=== PATIENT | female | born 1945 | race Caucasian/White ===

== ENCOUNTER 2017-08-03 06:02 | Day surgery (SDC) | payer MEDICARE, OTHER ==
[2017-08-03] MEDS ORDERED: Versed 2 MG/2 ML Injection IV ONE (06:03)
[2017-08-03] MEDS ORDERED: DIPRIVAN 200 MG/20 ML IV ONE (06:03)
[2017-08-03] MEDS ORDERED: Lactated Ringers 1,000 ML IV SCH (07:00)
[2017-08-03 08:23] VITALS: BP 114/68; PULSE 77; O2SAT 95
[2017-08-03] MEDS ORDERED: Lactated Ringers 1,000 ML IV ONE (12:53)
--- NOTE | 2017-08-11 13:45 | OP ---
SURGERY DATE/TIME: 08/03/2017 0656 PREOPERATIVE DIAGNOSES: 1) History of colon polyps. 2) Constipation. POSTOPERATIVE DIAGNOSES: 1) Poor bowel prep. 2) Diverticulosis. PROCEDURE: Colonoscopy. SURGEON: Tae Mcconnell M.D. ANESTHESIA: MAC by Vik Jaquez CRNA. ESTIMATED BLOOD LOSS: None. SPECIMENS: None. DESCRIPTION OF PROCEDURE: After informed written consent was obtained, the patient was taken to the endoscopy suite. She underwent monitored anesthesia and digital rectal exam showed normal sphincter tone and no internal lesions. The scope was inserted into the rectum and sequentially the entire colonic mucosa was traversed. The level of cecum was reached and verified with direct visualization of ileocecal valve. There was semisolid stool present throughout the entire length of the colon making visualization of the colonic mucosa difficult in some areas. There were diffuse diverticula noted throughout the length of the colon. There were no obvious mucosal abnormalities or lesions present upon withdrawal. Retroflexion was performed prior to withdrawal and was within normal limits. The scope was removed and the patient was transferred to the recovery room in good condition.
== END 2017-08-03 08:45 | disposition home or self-care (01) ==
LOC: SDC 06:02
PROVIDERS: ATTEND Family Medicine
PROC: 0DJD8ZZ Inspection of Lower Intestinal Tract, Via Natural or Artificial Opening Endoscopic (ICD-10-PCS; principal; 2017-08-03)
DX: K57.90 Diverticulosis of intestine, part unspecified, without perforation or abscess without bleeding (principal); K59.00 Constipation, unspecified
CPT/HCPCS: 00810; 99100; J2250; J2704

== ENCOUNTER 2019-02-12 13:22 | Emergency (ER) | payer MEDICARE, OTHER ==
[2019-02-12] MEDS ORDERED: BABY ASPIRIN 81 MG CHEW PO ONE (14:15)
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
[2019-02-12 14:23] LABS: BASOPHIL % 0.3 % (0.0-0.4); Basophil (Absolute #) 0.03 (0-0.4); Eosinophil (Absolute #) 0.44 (0-0.5); Granulocyte Absolute (ANC) 4.72 (1.4-6.9); Granulocytes % 53.1 % (36.0-66.0); Hematocrit 43.2 % (35-47); Hemoglobin 14.5 gm/dl (12.0-16.0); Lymphocyte (Absolute #) 2.69 (1.0-4.6); Lymphocytes % 30.3 % (24.0-44.0); Mean Cell Volume 86.1 fl (78-100); Mean Corpuscular Hemoglobin 28.9 pg (26-32); Mean Corpuscular Hgb Concent. 33.6 g/dl (32-36); Mean Platelet Volume 10.4 fl (6-9.5); Monocytes % 11.3 % (0.0-12.0); Platelet Count 262 K/mm3 (150-450); Red Blood Count 5.02 M/mm3 (4.1-5.4); Red Cell Distribution Width 15.2 % (11.5-14.0); White Blood Count 8.9 K/mm3 (4.0-10.5)
[2019-02-12 14:25] LABS: INR 1.03 (0.8-3.0); PROTIME 11.6 SECONDS (9.95-12.35)
[2019-02-12] MEDS ORDERED: BABY ASPIRIN 81 MG CHEW ONE (14:31)
[2019-02-12 14:34] LABS: AMYLASE 81 U/L (30-110); LIPASE 104 U/L (23-300)
[2019-02-12 14:35] LABS: ALBUMIN 4.6 g/dL (3.5-5.0); ALKALINE PHOSPHATASE 212 U/L (38-126); ANION GAP 13.2 MEQ/L (5-15); BLOOD UREA NITROGEN 16 mg/dL (7-17); CHLORIDE 102 mmol/L (98-107); Calcium 10.2 mg/dL (8.4-10.2); Carbon Dioxide 27 mmol/L (22-30); Creatinine 1 0.73 mg/dL (0.52-1.04); Glucose 91 mg/dL (74-106); Potassium 4.2 mmol/L (3.5-5.1); SGOT/AST 51 U/L (14-36); SGPT/ALT 29 U/L (0-35); SODIUM 139 mmol/L (137-145); Total Protein 8.4 g/dL (6.3-8.2)
--- NOTE | 2019-02-12 14:37 | XRAY ---
Indication: Chest pain. Comparison: December 25, 2015. Portable chest again demonstrates normal heart and lungs with incidental calcified granulomas. Bony thorax intact. No new/acute findings.
--- NOTE | 2019-02-12 16:45 | XRAY ---
Indication: Chest pressure/tightness. Back pain. Elevated d-dimer. Short of breath. Multiple contiguous axial images obtained through the chest using 80 cc of Isovue-370 contrast and PE protocol. Comparison: January 13, 2014. There is good opacification of the pulmonary arteries to include the lobar and segmental branches. No filling defect or pulmonary embolus. Heart is not enlarged. Aorta is normal in course and caliber. Stable tiny left hilar calcified nodes. No pathologic mediastinal/hilar lymphadenopathy. Lungs inflated with stable left upper lobe calcified granuloma, tiny right lower noncalcified nodules, and tiny left lower lobe noncalcified nodule. Also stable medial left lower lobe fibrosis/scarring. No new pulmonary mass, infiltrate, or effusion. Bony thorax intact. Limited upper abdomen unremarkable. Impression: 1. Again negative pulmonary embolus. No acute cardiopulmonary abnormalities. 2. Stable calcified/noncalcified nodules favored to be old granulomatous disease. CTDI 14.31
[2019-02-12 18:23] VITALS: BP 120/82; PULSE 71; O2SAT 94
== END 2019-02-12 18:26 | disposition home or self-care (01) ==
LOC: ED 13:22
DX: R07.89 Other chest pain (principal); Z86.73 Personal history of transient ischemic attack (TIA), and cerebral infarction without residual deficits; I10 Essential (primary) hypertension; Z79.899 Other long term (current) drug therapy
CPT/HCPCS: 36000; 36415; 71045; 71260; 80053; 82150; 83690; 84484; 85025; 85379; 85610; 85730; 93005; 93041; 99284; A9270-GY

== ENCOUNTER 2020-09-11 16:26 | Emergency (ER) | payer MEDICARE, OTHER ==
[2020-09-11 18:27] VITALS: BP 139/87; PULSE 65; O2SAT 95
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
== END 2020-09-11 19:00 | disposition home or self-care (01) ==
LOC: ED 16:26
DX: S01.01XA Laceration without foreign body of scalp, initial encounter (principal); I10 Essential (primary) hypertension; W01.190A Fall on same level from slipping, tripping and stumbling with subsequent striking against furniture, initial encounter; Z79.899 Other long term (current) drug therapy
CPT/HCPCS: 12002; 99283

== ENCOUNTER 2021-05-17 09:50 | Day surgery (SDC) | payer MEDICARE, OTHER ==
[2021-05-17 09:40] LABS: COVID AG -BINAX NOW RAPID TEST NEGATIVE (NEGATIVE)
[2021-05-17] MEDS ORDERED: Lactated Ringers 1,000 ML IV SCH (10:00)
[2021-05-17] MEDS ORDERED: Lactated Ringers 1,000 ML IV ONE (10:30)
[2021-05-17 15:07] VITALS: BP 145/90; PULSE 78; O2SAT 94
--- NOTE | 2021-05-18 10:56 | OP ---
PROCEDURE DATE/TIME: 05/17/2021 1321 PREOPERATIVE DIAGNOSES: Bloating, constipation, reflux disease. POSTOPERATIVE DIAGNOSES: 1) Small hiatal hernia. 2) Gastritis. 3) Reflux disease. 4) Peptic ulcer disease. 5) Diverticulosis. 6) Angulated and tortuous sigmoid colon. PROCEDURES: 1) EGD with biopsy. 2) Colonoscopy. PROCEDURE PERFORMED BY: Kelsey Anthony M.D. ANESTHESIA: MAC. ESTIMATED BLOOD LOSS: Minimal. COMPLICATIONS: None. SPECIMENS: 1) Antral biopsy; rule out Helicobacter pylori. 2) Duodenal biopsy; rule out celiac disease. HISTORY: This is a patient who presents for EGD and colonoscopy. She has had numerous symptoms including bloating, constipation and reflux disease which she would like to be evaluated. Her H&P and consent were reviewed with her and confirmed. She was seen to review everything and then was brought back to the endoscopy suite. DESCRIPTION OF PROCEDURE: In the endoscopy suite a complete time out was performed. She was placed in the left lateral decubitus position. The scope was then inserted gently through the mouth into the oropharynx down into the esophagus, stomach and then duodenum. Her duodenum looked normal. I did take a few biopsies due to her symptoms to rule out celiac disease. These were done with cold forceps and each biopsy site was hemostatic after biopsy. We evaluated at least to the second portion of the duodenum and then the scope was carefully withdrawn after insuring good hemostasis and no issue. Back into the stomach, the patient had two ulcerations one which was a linear ulceration approximately 1 to 1.25 cm and then a smaller adjacent ulcer which was more pinpoint in the body of the stomach. She had some antral gastritis and some gastritis throughout the body with some erythema. I took biopsies in the antrum to rule out Helicobacter pylori. There was no antral ulcer. On retroflex view the patient does have a small hiatal hernia. He does have some mild upper gastritis, this is less than in her antrum and her stomach body. There were no masses. We then were able to carefully remove the scope back into the esophagus. She was hemostatic at her biopsy sites in her stomach. Her ulcer was not bleeding. It looked cratered but linear shaped ulcer. No sign of any malignancy. In the distal esophagus the patient does have some free flow reflux. He does not have any obvious Melendez's disease. He does have a small hiatal hernia about 2 cm. The remainder of the esophagus outside of this was normal and the scope was completely withdrawn. The patient tolerated the procedure well. There were no immediate complications. She was repositioned for colonoscopy. First, a rectal exam was done. The patient does have some prominent external hemorrhoidal disease as well as some benign appearing anal tags. She also does have some mild internal hemorrhoidal disease as well. All of this appears benign. There were no concerning masses identified on inspection, palpation or with the colonoscope in the rectum. The scope was then inserted and gently advanced to the level of the cecum. The patient had quite an angulated and tortuous sigmoid colon. We did have to use gentle abdominal pressure to help straighten the scope but with gentle abdominal pressure we were able to get to the cecum. The ileocecal valve and appendiceal orifice were visualized and these looked normal. The scope was then carefully withdrawn taking a circumferential view. The patient did have liquid stool. We did have to irrigate this. After irrigation the prep was satisfactory. The patient also had diverticulosis with multiple small pockets. Otherwise, the mucosa of her colon looked normal and the scope was able to be completely withdrawn. I did not see any masses or lesions. No strictures but again she was angulated and tortuous even though her lumen was patent. The patient tolerated the procedure well. There were no immediate complications. Due to her prep being satisfactory but not perfect, I would put her on a five year surveillance colonoscopy interval and at this time she will be 80 so we will reconvene and determine what is right for her at that time. With her regards to her EGD, I will plan to do another EGD in two to three months to insure this ulcer has healed. She is going to think about her gallbladder surgery and determine if she wants to proceed with this next week or attempt to heal the ulcer first and then proceed with gallbladder surgery after that. Her family understands all of the findings. I have written her a prescription for Carafate and she will continue her proton pump inhibitor and she will be following up with me in the office as well.
== END 2021-05-17 15:15 | disposition home or self-care (01) ==
LOC: SDC 09:50
PROVIDERS: ATTEND Surgery
DX: K44.9 Diaphragmatic hernia without obstruction or gangrene (principal); K59.00 Constipation, unspecified; R14.0 Abdominal distension (gaseous); I10 Essential (primary) hypertension; Z79.899 Other long term (current) drug therapy; K21.9 Gastro-esophageal reflux disease without esophagitis; K57.30 Diverticulosis of large intestine without perforation or abscess without bleeding; K27.9 Peptic ulcer, site unspecified, unspecified as acute or chronic, without hemorrhage or perforation; K29.70 Gastritis, unspecified, without bleeding; K64.4 Residual hemorrhoidal skin tags
CPT/HCPCS: 88305; 88312; 99000; 99100

== ENCOUNTER 2024-03-19 08:27 | Day surgery (SDC) | payer MEDICARE ==
[~2024-03-19 08:27] MED LIST: ACETAZOLAMIDE 250 MG TABLET PO ONE; Ak-Dilate OPHTHALMIC*** 1.065 ML, Cyclogyl 1% OPHTH SOL 1.065 ML, GATIFLOXACIN 0.5% OPH... OP ONE; BETADINE 5% OPHTHALMIC 30 ML OP ONE; Lactated Ringers 1,000 ML IV ONE; Lactated Ringers 1,000 ML IV SCH; NON-FORMULARY ITEM OP ONE; TETRACAINE 0.5% STERI-UNIT SOL OP ONE; Zofran 4 MG/2 ML VIAL IV PRN; cefUROXime sodium 0.005 GM in Sodium Chloride Flush 30 ML*** 0.5 ML IJ ONE
[2024-03-19 08:50] VITALS: RESP 16
[2024-03-19] MEDS: Lactated Ringers 1,000 ML IV SCH (08:53)
[2024-03-19] MEDS: TETRACAINE 0.5% STERI-UNIT SOL OP ONE ×2 (08:54→09:37)
[2024-03-19] MEDS: Ak-Dilate OPHTHALMIC*** 1.065 ML, Cyclogyl 1% OPHTH SOL 1.065 ML, GATIFLOXACIN 0.5% OPH... OP ONE (08:56)
[2024-03-19] MEDS ORDERED: Zofran 4 MG/2 ML VIAL IV PRN (10:30)
[2024-03-19] MEDS ORDERED: Epinephrine Preservative Free 1 MG/ML IJ ONE (10:30)
[2024-03-19] MEDS ORDERED: SUBLIMAZE 100 MCG/2 ML ONE (11:06)
[2024-03-19] MEDS ORDERED: DIPRIVAN 200 MG/20 ML IV ONE (11:06)
[2024-03-19] MEDS ORDERED: Versed 2 MG/2 ML Injection ONE (11:06)
[2024-03-19] MEDS: ACETAZOLAMIDE 250 MG TABLET PO ONE (11:40)
[2024-03-19 11:44] VITALS: BP 146/82; PULSE 67; TEMP 97.7; O2SAT 93
== END 2024-03-19 11:51 | disposition home or self-care (01) ==
LOC: SDC 08:27
PROVIDERS: ATTEND Ophthalmology
DX: H25.811 Combined forms of age-related cataract, right eye (principal)
CPT/HCPCS: C1780; J0171; J2250; J2704; J3010; A9270-GY

== ENCOUNTER 2024-04-23 08:00 | Day surgery (SDC) | payer MEDICARE ==
[~2024-04-23 08:00] MED LIST changes: -ACETAZOLAMIDE 250 MG TABLET PO ONE; -Ak-Dilate OPHTHALMIC*** 1.065 ML, Cyclogyl 1% OPHTH SOL 1.065 ML, GATIFLOXACIN 0.5% OPH... OP ONE; -Lactated Ringers 1,000 ML IV ONE; -Lactated Ringers 1,000 ML IV SCH; +MOXIFLOXACIN 4 MG/0.8 ML VIAL IO ONE; -NON-FORMULARY ITEM OP ONE; -TETRACAINE 0.5% STERI-UNIT SOL OP ONE; +TRIAMCINOLONE 15 MG/ML INJ INTRAOP ONE; -Zofran 4 MG/2 ML VIAL IV PRN; -cefUROXime sodium 0.005 GM in Sodium Chloride Flush 30 ML*** 0.5 ML IJ ONE
[2024-04-23] MEDS ORDERED: Epinephrine Preservative Free 1 MG/ML IJ ONE (08:01)
[2024-04-23] MEDS ORDERED: Lactated Ringers 1,000 ML IV ONE ×2 (08:21→08:27)
[2024-04-23] MEDS: Lactated Ringers 1,000 ML IV SCH (08:28)
[2024-04-23] MEDS: TETRACAINE 0.5% STERI-UNIT SOL OP ONE ×2 (08:31→09:17)
[2024-04-23] MEDS: Ak-Dilate OPHTHALMIC*** 1.065 ML, Cyclogyl 1% OPHTH SOL 1.065 ML, GATIFLOXACIN 0.5% OPH... OP ONE (08:32)
[2024-04-23] MEDS ORDERED: Zofran 4 MG/2 ML VIAL IV PRN (10:00)
[2024-04-23] MEDS ORDERED: ACETAZOLAMIDE 250 MG TABLET PO ONE (10:00)
[2024-04-23] MEDS ORDERED: DIPRIVAN 200 MG/20 ML IV ONE (10:16)
[2024-04-23 10:43] VITALS: RESP 16; TEMP 97
[2024-04-23 10:57] VITALS: BP 156/86; PULSE 67; O2SAT 94
== END 2024-04-23 11:06 | disposition home or self-care (01) ==
LOC: SDC 08:00
PROVIDERS: ATTEND Ophthalmology
DX: H25.812 Combined forms of age-related cataract, left eye (principal)
CPT/HCPCS: 66982; 99100; C1780; J0171; J2704; A9270-GY